=== PATIENT | female | born 1960 | race American Indian/Alaskan Native ===

== ENCOUNTER 2018-11-12 17:36 | Emergency (ER) | payer MEDICAID ==
[2018-11-12 17:48] VITALS: BP 137/67
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
[2018-11-12] MEDS ORDERED: THERMAZENE 50 GRAM TP ONE (18:24)
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
== END 2018-11-12 18:49 | disposition home or self-care (01) ==
LOC: ED 17:36
DX: T20.26XA Burn of second degree of forehead and cheek, initial encounter (principal); T23.201A Burn of second degree of right hand, unspecified site, initial encounter; I50.9 Heart failure, unspecified; Z88.8 Allergy status to other drugs, medicaments and biological substances; X12.XXXA Contact with other hot fluids, initial encounter; Y93.89 Activity, other specified; Y92.89 Other specified places as the place of occurrence of the external cause; Y99.8 Other external cause status; I11.0 Hypertensive heart disease with heart failure